=== PATIENT | male | born 1950 | race Caucasian/White ===

== ENCOUNTER → 2016-12-10 07:40 | Outpatient (CLI) | payer BC, MEDICARE ==
[2010-11-09 10:43] VITALS: BMI 31.2
== END | disposition home or self-care (01) ==
LOC: D.MRI 07:40
DX: S86.212A Strain of muscle(s) and tendon(s) of anterior muscle group at lower leg level, left leg, initial encounter (principal)

== ENCOUNTER → 2016-12-24 12:30 | Outpatient (CLI) | payer BC, MEDICARE ==
[2010-11-09 10:43] VITALS: BMI 31.2
== END | disposition home or self-care (01) ==
LOC: D.MRI 12:30
DX: M25.562 Pain in left knee (principal); M54.16 Radiculopathy, lumbar region